=== PATIENT | male | born 1975 | race Caucasian/White ===

== ENCOUNTER → 2017-03-05 | Outpatient (CLI) | payer OTHER ==
[~2017-03-05] MED LIST: CYCL5TAB PO; IOHEXOL 180 MG/ML 10 ML VIAL. IT ONE; LIDOCAINE 1% Multi-Dose 20 ML VIAL. ID ONE; TRAM50TA PO
--- NOTE | 2017-03-05 12:53 | KCIC ---
PROCEDURE Fluoroscopic guided lumbar puncture for lumbar myelography; lumbar spine CT myelogram; lumbar spine, flexion and extension views. HISTORY Lower back pain and bilateral lower extremity radiculopathy status post fall. TECHNIQUE Standing frontal, lateral, flexion and extension and coned sacral views of the lumbar spine were obtained. Subsequent, the risks of the lumbar puncture and myelogram procedure were discussed with the patient and written and verbal consent was obtained. A time-out was performed. Fluoroscopic imaging of the lumbar spine was performed and a site overlying L4-L5 was selected. The skin overlying this region was sterilely prepped, draped and infiltrated with 1 percent lidocaine. A 25 gauge needle was advanced into the thecal sac. CSF was not identified in the needle hub despite appropriate needle tip positioning on prone and sagittal images. Therefore, using the same technique, the decision was made to proceed with lumbar puncture at L3-L4. The needle was advanced into the thecal sac and CSF was obtained. 15 cc Omnipaque 180 intrathecal contrast was injected into the thecal sac. The needle was removed and a sterile bandage was placed at the needle entry site. Prone, lateral neutral and flexion and extension views of the lumbar spine were obtained. For fluoroscopic images were obtained with a total fluoroscopy time of 1 minutes and 11 seconds. The patient was transferred to the CT suite for the post injection CT portion of the exam. The patient reported bilateral leg weakness and inability to bear weight immediately following the injection. However, the patient was able to ambulate shortly following the CT portion of the exam and was discharged in stable condition. One or more of the following individualized dose reduction techniques were utilized for this examination: 1. Automated exposure control; 2. Adjustment of the mA and/or kV according to patient size; 3. Use of iterative reconstruction technique. COMPARISON None. FINDINGS The pre myelogram lumbar images demonstrate mild dextro curvature centered at L1. There is minimal retrolisthesis of L4 on L5. This does not change between flexion extension. No abnormal translatory motion is seen. There is endplate remodeling with slight disc space narrowing at L4-L5. The myelogram images re-demonstrate slight retrolisthesis of L4 on L5. There is slight disc space narrowing at this level. There are endplate Schmorl's nodes at T12 and L1. No suspicious osseous lesion is seen. The conus terminates at T12. At L1-L2, there is no stenosis. At L2-L3, there is no stenosis. At L3-L4, there is a minimal disc bulge. 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 There is minimal hypertrophy of the ligamentum flavum. There is minimal central canal stenosis. At L4-L5, there is a moderate diffuse disc bulge superimposed on mild endplate remodeling. There may be a superimposed shallow broad-based left paracentral to lateral recess protrusion. 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 There is minimal bilateral foraminal stenosis. There is moderate central canal stenosis with effacement of the left greater than right lateral recesses. At L5-S1, there is a minimal disc bulge. There is minimal right foraminal stenosis. IMPRESSION 1. L4-L5: Diffuse disc bulge with possible superimposed shallow broad-based left paracentral to lateral recess protrusion. The combination of this finding and congenital shortening of the pedicles contributes to minimal bilateral foraminal and moderate central canal stenosis with effacement of the lateral recesses at this level. 2. Minimal degenerative change at L3-L4 and L5-S1. 3. Mild lumbar dextro curvature and slight retrolisthesis of L4 on L5. This does not change between flexion and extension. Electronically signed by: Kathy Abernathy (Mar 05, 2017 12:51:20)
== END | disposition home or self-care (01) ==
LOC: KCIC 10:27
PROVIDERS: ATTEND Neurological Surgery
DX: M47.26 Other spondylosis with radiculopathy, lumbar region (principal)
CPT/HCPCS: 72110; 72132; 72265